=== PATIENT | female | born 1970 | race Caucasian/White ===

== ENCOUNTER 2017-07-18 12:35 | Emergency (ER) | payer BC ==
[~2017-07-18] VITALS: Ht 170.2 cm; Wt 90.6 kg
[~2017-07-18 12:35] MED LIST: ABILIFY5 MG PO; ASPIRIN325 MG PO; BENADRYL25 MG PO; CLEOCIN300 MG PO; COQ-10100 MG PO; COZAAR25 MG PO; CRESTOR10 MG PO; HYDROCHLOROTHIA25 MG PO; KARIVA 28 DAY1 EACH PO; LATUDA20 MG PO; LISINOPRIL10 MG PO; LOPRESSOR50 MG PO; NIFEDICAL XL30 MG PO; NIFEDIPINE ER30 MG PO; NORCO 5/3251 TABLET PO; PEPCID20 MG PO; PREDNISONE10 M1 PO; PREDNISONE20 MG PO; PROBIOTIC1 EAC1 PO; SOMATULINE120 MG/0.5 SC; TOPAMAX25 MG PO; VALIUM5 MG PO; VITAMIN B122500 MCG PO; VITAMIN D-32000 UNI2 PO; XARELTO20 MG PO; ZOFRAN4 MG PO
[2017-07-18] MEDS ORDERED: CEFEPIME HCL2 GM IV (13:27)
[2017-07-18] MEDS ORDERED: VANCOMYCIN1 GM/150 M IV (13:27)
[2017-07-18] MEDS ORDERED: ALLEGRA ALLERGY60 MG PO (13:28)
[2017-07-18] MEDS ORDERED: FISH OIL 1,0001 EAC7 PO (13:31)
[2017-07-18] MEDS ORDERED: FLUTICASONE PRO16 GM BOTH NARES (13:31)
[2017-07-18] MEDS ORDERED: DAILY VALUE1 EACH PO (13:34)
[2017-07-18] MEDS ORDERED: VERAPAMIL HCL120 M2 PO (13:34)
[2017-07-18] MEDS ORDERED: METOPROLOL SUCC25 MG PO (13:34)
[2017-07-18] MEDS ORDERED: INDERAL60 MG PO (13:35)
[2017-07-18 14:11] LABS: HEMOGLOBIN 13.1 G/DL (11.9-15.5); MCH 30.7 PG (29.0-34.0); MCHC 35.4 G/DL (30.0-36.0); MCV 86.7 FL (83-99); PLATELET COUNT 117 K/uL (156-360); RBC DIS.WIDTH-CV 12.4 % (11.8-14.6); RBC DIS.WIDTH-SD 39.8 % (39-53); RED BLOOD COUNT 4.27 M/uL (3.80-5.20); WHITE BLOOD COUNT 5.5 K/uL (4.1-10.2)
[2017-07-18 14:21] LABS: ALBUMIN 3.8 g/dL (3.2-4.8)
[2017-07-18 14:22] LABS: CHLORIDE 99 mEq/L (99-109); POTASSIUM 3.9 mEq/L (3.7-5.4); SODIUM 133 mEq/L (136-147)
[2017-07-18 14:24] LABS: TOTAL PROTEIN 6.7 g/dL (6.4-8.3)
[2017-07-18 14:26] LABS: GLUCOSE 113 mg/dL (70-99); TOTAL BILIRUBIN 0.7 mg/dL (0.0-1.0)
[2017-07-18 14:27] LABS: ALKALINE PHOSPHATASE 115 IU/L (3-129)
[2017-07-18 14:28] LABS: CREATININE 0.7 mg/dL (0.6-1.3); GFR ESTIMATE (CALCULATED) > 59 mL/min/
[2017-07-18 14:29] LABS: AST (GOT) 62 IU/L (2-34); UREA NITROGEN (BUN) 11 mg/dL (9-23)
[2017-07-18 14:31] LABS: ALT (GPT) 72 IU/L (3-49)
[2017-07-18 15:31] VITALS: BP 133/89
== END 2017-07-18 15:32 | disposition home or self-care (01) ==
LOC: EME 12:35
PROVIDERS: Emergency Medicine Emergency Medical Services
DX: R21 Rash and other nonspecific skin eruption (principal); L53.9 Erythematous condition, unspecified; T36.8X5A Adverse effect of other systemic antibiotics, initial encounter; E78.5 Hyperlipidemia, unspecified; I10 Essential (primary) hypertension; F32.9 Major depressive disorder, single episode, unspecified; Z85.020 Personal history of malignant carcinoid tumor of stomach; Z79.82 Long term (current) use of aspirin; Z79.01 Long term (current) use of anticoagulants; Z86.79 Personal history of other diseases of the circulatory system
CPT/HCPCS: 80053; 85027; 99281; 99284